=== PATIENT | female | born 1955 | race Caucasian/White ===

== ENCOUNTER 2017-06-24 04:35 | Observation (INO) | payer BC ==
[2017-06-24 05:17] LABS: #Eosinphils 0.9 thou/uL (0.0-0.7); #Lymphocytes 2.8 thou/uL (1.20-3.40); #Monocytes 0.6 thou/uL (0.11-0.59); #Neutrophils 3.7 thou/uL (1.40-6.50); %Basophils 0.3 % (0.0-1.0); %Eosinophils 10.9 % (0.0-10.0); %Monocytes 7.6 % (0.0-10.0); Mean Platelet Volume 7.9 fL (7.4-10.4); Red Blood Cell (RBC) Count 4.57 mill/uL (4.20-5.40); White Blood Cell (WBC) Count 8.1 thou/uL (4.8-10.8)
[2017-06-24 05:39] LABS: ALT (SGPT) 17 U/L (8-55); AST (SGOT) 21 U/L (5-34); Alkaline Phosphatase 79 U/L (40-150); Anion Gap 15 mmol/L (10-20); BUN (Urea Nitrogen) 50 mg/dL (9.8-20.1); Bilirubin, Total 0.4 mg/dL (0.2-1.2); Calc. Creatinine Clearance 0 mL/min (70-130); Calcium 9.8 mg/dL (7.8-10.44); Carbon Dioxide 21 mmol/L (22-29); Chloride 107 mmol/L (98-107); Estimated GFR-MDRD 35; Globulin 3.1 g/dL (2.4-3.5); Magnesium 2.3 mg/dL (1.6-2.6); Protein, Total 7.3 g/dL (6.0-8.3)
[2017-06-24 05:43] LABS: Troponin I Less than 0.010 ng/mL (< 0.028)
--- NOTE | 2017-06-24 08:38 | RAD ---
CHEST ONE VIEW: Comparison: 11-21-11, 10-17-16 History: Chest pain. FINDINGS: Portable upright chest demonstrates a normal cardiac silhouette. The pulmonary vessels and hilum are normal. No masses or consolidation. No pneumothorax or osseous abnormalities. IMPRESSION: No acute cardiopulmonary process. POS: [facility]
[2017-06-24 08:43] LABS: Troponin I Less than 0.010 ng/mL (< 0.028)
[2017-06-24 09:46] VITALS: BMI 32.3
[2017-06-24] MEDS ORDERED: Regadenoson 0.4 MG/5 ML SYRINGE IVP SCH (10:00)
[2017-06-24] MEDS ORDERED: Acetaminophen 500 MG TAB PO PRN (10:07)
[2017-06-24] MEDS ORDERED: Ondansetron ODT 4 MG TAB PO PRN (10:07)
[2017-06-24] MEDS ORDERED: hydrALAZINE 20 MG/ML VIAL SLOW IVP PRN (10:07)
[2017-06-24] MEDS ORDERED: Ondansetron HCl/PF 4 MG/2 ML Vial IVP PRN (10:07)
[2017-06-24] MEDS ORDERED: cloNIDine 0.1 MG TAB PO PRN (10:07)
[2017-06-24] MEDS ORDERED: Sodium Chloride 0.65% Nasal 44 ML BOT EA NARE PRN (10:31)
[2017-06-24] MEDS ORDERED: ALPRAZolam 0.25 MG TAB PO SCH ×2 (11:00→16:00)
--- NOTE | 2017-06-24 11:00 | NM ---
NUCLEAR MEDICINE VENTILATION PERFUSION SCAN: (V/Q SCAN) HISTORY: 61-year-old female with chest pain. TECHNIQUE: Xenon-133 gas dose: 24.4 mCi [id number] dose: 6.6 mCi The patient inhaled Xenon-133 gas, and dynamic ventilation scintigraphy was performed. [id number] was injected IV, and multiple perfusion scintigraphic views were obtained. FINDINGS: There is no Xenon retention; no evidence of air trapping. There are bilateral patchy, matching ventil ation/perfusion defects. No mismatching perfusion defects are identified. The matching defects do not correspond to any visible focal lesion on today's chest radiograph. They may represent regions of em physematous changes that are occult on the plain radiograph. IMPRESSION: Low probable for pulmonary thromboembolism. MIKE Cespedes POS: [facility]
--- NOTE | 2017-06-24 11:19 | HP ---
DATE OF ADMISSION: 06/24/2017 PRIMARY CARE PHYSICIAN: Dr. Adair. CHIEF COMPLAINT: Chest pain, shortness of breath. HISTORY OF PRESENT ILLNESS: This is a 61-year-old female who presents to [facility] complaining of neck and left shoulder pain, which began in the tobacco roller hours o n 06/24/2017 after waking up to go to the restroom. The patient states she had some associated short ness of breath and pain in the neck region radiating to her left shoulder and left upper extremity wi th tingling. The patient admits to a mild cough associated with asthma for which she takes metered d ose inhaler and bronchodilator therapy for. The patient denies any specific fever, trauma, exposure history or known coronary artery disease. The patient states she underwent a left heart catheterizat ion approximately 5 years prior to this evaluation showing no evidence for advanced coronary artery d isease with recommendations for medical management. Patient admits to receiving the influenza and pn eumonia vaccination in 03/2017, but denies any prominent fever. The patient denies any history of sm oking, hemoptysis, hematemesis or weight loss. Patient denies any specific change to her activity le gaby and states she does not exercise due to arthritis in the knees and ankles. The patient states sh mandy has been receiving injections in her knee joints for relief; however, this is limited her activity and states there is literally "bone on bone." The patient has been taking ibuprofen and Tylenol #3 f or pain relief. In the emergency department, the patient underwent general evaluation with serial Ca rdiac enzymes negative x2. Chest x-ray was unrevealing; however, the patient had a mildly elevated D -dimer undergoing ventilation perfusion scan showing low probability for pulmonary embolus. The jennifer ent received aspirin and was transferred to the observation unit for evaluation. PAST MEDICAL HISTORY: 1. Asthma, chronic, intermittent. 2. Hypertension. 3. Diabetes mellitus type 2. 4. Depression. 5. Hyperlipidemia. 6. Osteoarthritis. PAST SURGICAL HISTORY: Status post hysterectomy. ALLERGIES: IODINE, ERYTHROMYCIN. FAMILY HISTORY: Positive for hypertension. SOCIAL HISTORY: The patient resides in [place], [place]. Works with [employer]. Quit smoking 30 years prior to this evaluation. No alcohol or illicit drug use. Accompanied by her sons in the hospital. CURRENT MEDICATIONS: 1. Tylenol #3 300/30 mg 1-2 tabs p.o. q.6 hours p.r.n. pain. 2. Albuterol sulfate nebulized q.4 hours p.r.n. 3. Advair Diskus 2 puffs inhaled b.i.d. 4. Hydrochlorothiazide 25 mg 1 tab p.o. daily. 5. Ibuprofen 800 mg p.o. t.i.d. p.r.n. 6. Zestril 20 mg p.o. daily. 7. Meloxicam 15 mg p.o. daily. 8. Metformin 500 mg p.o. daily. 9. Sudafed 30 mg p.o. daily p.r.n. 10. Sertraline 200 mg 1 tab p.o. daily. 11. Zocor 40 mg p.o. at bedtime. 12. Ventolin HFA 2 puffs inhaled b.i.d. 13. Zafirlukast 20 mg p.o. daily. REVIEW OF SYSTEMS: The following complete review of systems was negative, unless otherwise mentioned in the HPI or below: Constitutional: Weight loss or gain, ability to conduct usual activities. Skin: Rash, itching. Eyes: Double vision, pain. ENT/Mouth: Nose bleeding, neck stiffness, pain, tenderness. Cardiovascular: Palpitations, dyspnea on exertion, orthopnea. Respiratory: Shortness of breath, wheezing, cough, hemoptysis, fever or night sweats. Gastrointestinal: Poor appetite, abdominal pain, heartburn, nausea, vomiting, constipation, or diarr hea. Genitourinary: Urgency, frequency, dysuria, nocturia. Musculoskeletal: Pain, swelling. Neurologic/Psychiatric: Anxiety, depression. Allergy/Immunologic: Skin rash, bleeding tendency. PHYSICAL EXAMINATION: VITAL SIGNS: Currently, blood pressure 144/80, pulse 73, respiratory rate 18, temperature 97.9 degre es Fahrenheit, O2 saturation 97% on room air. GENERAL APPEARANCE: This is a 61-year-old female, alert and oriented x3, in no acute distr ess. HEENT: Pupils are equal, round, and reactive to light and accommodation. Extraocular muscles are in tact. No scleral icterus, no conjunctival injection. Nares patent. OP is clear. Teeth in fair rep air. NECK: Supple, no cervical adenopathy, no thyromegaly, no carotid bruits, no JVD appreciated. Cervic al spine with full active and passive range of motion. No meningeal signs appreciated. CHEST: Bilateral expiratory wheezing. Diminished breath sounds in the bases. CARDIOVASCULAR: S1, S2, without noted murmur. ABDOMEN: Obese, soft, nontender, nondistended. Bowel sounds are positive in all four quadrants. Th ere is no hepatosplenomegaly, no abdominal bruits, no rebound or guarding appreciated. EXTREMITIES: Warm and dry with fair turgor. No clubbing, cyanosis or asymmetric edema appreciated. Pulses palpable distally at the dorsalis pedis, posterior tibial, and popliteal arteries bilaterally . Capillary refill less than 2 seconds. NEUROLOGIC: Cranial nerves II through XII are grossly intact. No focal or lateralizing signs apprec iated. PERTINENT LABORATORY DATA AND X-RAY FINDINGS: Sodium 138, potassium 4.9, chloride 107, CO2 of 21, BU N 50, creatinine 1.52 with estimated GFR of 35, glucose 102, calcium 9.8. LFTs within normal limits. Magnesium 2.3, troponin I negative x2. BNP 41. Albumin 4.2. CBC showed a white blood cell count 8.1, hemoglobin 13.4, hematocrit 41, platelet count 188. D-dimer 0.52. Influenza A and B antigen ne gative, 06/24/2017. Portable chest x-ray dated 06/24/2017 showed no acute cardiopulmonary process. EKG dated 06/24/2017 by my interpretation shows sinus mechanism with heart rates in the 80s. Normal R-wave progression noted in the precordial leads. Normal axis. No acute ST-T wave changes appreciat ed. ASSESSMENT AND PLAN: 1. Chest pain. The patient will be placed on observation status. We will proceed with treadmill st ress testing as the patient underwent ventilation perfusion study on the day of admission. Continue aspirin 81 mg p.o. daily. 2. Chronic asthma. We will provide DuoNeb q.4 hours p.r.n. Resume Advair Diskus 2 puffs inhaled b. i.d. 3. Hypertension. Continue antihypertensive regimen with the exception of Zestril, given patient's r enal status. Continue to monitor clinical response. 4. 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 Suspect iatrogenic given continued use of ALDO inhibitors in co njunction with ibuprofen, hydrochlorothiazide and metformin. Recommend modification to her current d osing and close follow up for renal function assessment. 5. Prophylaxis. Sequential compression devices while in bed. Pepcid 20 mg p.o. b.i.d. 6. Code status is FULL. Surrogate medical decision maker is the patient's son.
[2017-06-24 12:07] LABS: Troponin I Less than 0.010 ng/mL (< 0.028)
[2017-06-24 16:05] VITALS: BP 138/66; TEMP 97.7
[2017-06-24] MEDS ORDERED: Famotidine 20 MG TAB PO SCH (21:00)
--- NOTE | 2017-06-25 06:40 | DIS ---
DATE OF ADMISSION: 06/24/2017 DATE OF DISCHARGE: 06/24/2017 DISCHARGE DIAGNOSES: 1. Acute bronchitis. 2. Anxiety disorder. 3. Asthma, chronic and intermittent. 4. Hypertension, stable. 5. Diabetes mellitus type 2. 6. Depression. 7. Hyperlipidemia. 8. Question of chest pain secondarily to #1. 9. Chronic kidney disease, stage 3-4. CONSULTATIONS: None. PERTINENT LABS AND X-RAY FINDINGS: BUN 50, creatinine 1.52 with estimated GFR of 35. LFTs within no rmal limits. Magnesium 2.3. Troponin I negative x3. BNP 40.5, albumin 4.2, total cholesterol 179, triglycerides 98, HDL 57, LDL 102. CBC within normal limits. Influenza A and B antigen negative on 06/24/2017. Portable chest x-ray dated 06/24/2017 showed no acute cardiopulmonary process. HOSPITAL COURSE: Patient was observed on the telemetry unit after presenting with neck and left shou lder discomfort with questionable chest pain. Patient underwent extensive evaluation including chest imaging showing no acute infiltrates. Serial cardiac enzymes were negative x3, and patient was sche duled for a treadmill stress test after undergoing a ventilation perfusion scan showing low probabili ty for pulmonary embolus. Patient was unable to complete the treadmill stress test. However, teleme try monitoring showed no acute arrhythmia or dysrhythmia, and patient's symptomatology and presentati on consistent with acute bronchitis with mild asthma exacerbation. Patient received general pulmonar y supportive measures including bronchodilator therapy. Patient was also initiated on prednisone for a short course including Omnicef 300 mg b.i.d. Overall, patient remained clinically stable and read y for discharge on 06/24/2017. DISCHARGE MEDICATIONS: 1. Prednisone 10 mg one tab p.o. b.i.d. x2 days, followed by 10 mg p.o. daily x2 days, followed by 5 mg p.o. daily x2 days. 2. Xanax 0.25 mg p.o. b.i.d. 3. Omnicef 300 mg 1 tab p.o. b.i.d. 4. Flonase nasal spray 1 spray in each naris daily. 5. Tylenol No. 3 300/30 mg 1-2 tabs p.o. q.4-6 hours p.r.n. pain. 6. Albuterol sulfate nebulized q.4 hours p.r.n. 7. Advair Diskus 2 puffs inhaled b.i.d. 8. Hydrochlorothiazide 25 mg 1 tab p.o. daily. 9. Motrin 800 mg 1 tab p.o. t.i.d. p.r.n., hold x72 hours. 10. Zestril 20 mg 1 tab p.o. daily, hold x72 hours. 11. Meloxicam 15 mg p.o. daily. 12. Metformin 500 mg p.o. daily, hold x48 hours. 13. Sertraline 200 mg p.o. daily. 14. Zocor 40 mg p.o. at bedtime. 15. Zafirlukast 20 mg p.o. daily. FOLLOWUP: Patient will follow up with her primary care provider, Dr. Merary Adair on 7. CONDITION ON DISCHARGE: Stable. ACTIVITY: Ad july. DIET: Heart healthy and ADA. CODE STATUS: Full. DISPOSITION: Home on 06/24/2017.
--- NOTE | 2017-07-29 14:25 | EKG ---
Test Reason : Blood Pressure : / mmHG Vent. Rate : 082 BPM Atrial Rate : 082 BPM P-R Int : 110 ms QRS Dur : 098 ms QT Int : 382 ms P-R-T Axes : -07 011 038 degrees QTc Int : 446 ms Sinus rhythm with short NE RSR' or QR pattern in V1 suggests right ventricular conduction delay Borderline ECG Confirmed by LUIS BRADSHAW D.O. ([id number]), dictionary editor WALTER FRANCO ([id number]) on 07/29/2017 2:24:38 PM Referred By: Confirmed By:LUIS BRADSHAW D.O.
== END 2017-06-24 19:01 | disposition home or self-care (01) ==
LOC: ERS 04:35 → 2SW 05:55 → ERS 08:49
PROVIDERS: ADMIT Family Medicine; ATTEND Family Medicine
DX: J20.9 Acute bronchitis, unspecified (principal); F41.9 Anxiety disorder, unspecified; J45.909 Unspecified asthma, uncomplicated; F32.9 Major depressive disorder, single episode, unspecified; E78.5 Hyperlipidemia, unspecified; E11.22 Type 2 diabetes mellitus with diabetic chronic kidney disease; I12.9 Hypertensive chronic kidney disease with stage 1 through stage 4 chronic kidney disease, or unspecified chronic kidney disease; N18.4 Chronic kidney disease, stage 4 (severe); M25.512 Pain in left shoulder; M54.2 Cervicalgia; M19.90 Unspecified osteoarthritis, unspecified site; Z79.84 Long term (current) use of oral hypoglycemic drugs; Z79.1 Long term (current) use of non-steroidal anti-inflammatories (NSAID); Z79.899 Other long term (current) drug therapy; Z88.1 Allergy status to other antibiotic agents; Z91.041 Radiographic dye allergy status; Z90.710 Acquired absence of both cervix and uterus; Z87.891 Personal history of nicotine dependence
CPT/HCPCS: 36415; 71010; 78582; 80053; 80061; 82553; 83735; 83880; 84484; 85025; 85379; 93005; 94640; 94760; A9540; A9558; G0378; J7620